=== PATIENT | female | born 1940 | race Caucasian/White ===

== ENCOUNTER → 2020-05-14 14:44 | Outpatient (BNVA) | payer MEDICARE, BC, SELFPAY | PROVIDERS: Visit Provider Obstetrics & Gynecology | DX: Z11.59 Encounter for screening for other viral diseases (principal) | CPT/HCPCS: 87635 ==

== ENCOUNTER → 2020-08-04 11:36 | Outpatient (BNVA) | payer MEDICARE, BC, SELFPAY | PROVIDERS: PCP Nurse Practitioner Family; Visit Provider Urology | DX: N39.41 Urge incontinence (principal); Z98.890 Other specified postprocedural states; N39.0 Urinary tract infection, site not specified; R33.9 Retention of urine, unspecified | CPT/HCPCS: 81003 ==

== ENCOUNTER → 2020-08-10 11:00 | Outpatient (BNVA) | payer MEDICARE, BC, SELFPAY | PROVIDERS: Visit Provider Internal Medicine | DX: L40.50 Arthropathic psoriasis, unspecified (principal); M79.7 Fibromyalgia; Z11.1 Encounter for screening for respiratory tuberculosis; Z11.59 Encounter for screening for other viral diseases; Z79.899 Other long term (current) drug therapy | CPT/HCPCS: 36415; 80053; 85025; 86140; 86480; 86704; 86803; 87340; 99203; 99204 ==

== ENCOUNTER → 2020-09-15 13:37 | Outpatient (BNVA) | payer MEDICARE, BC, SELFPAY | PROVIDERS: Visit Provider Internal Medicine | DX: L40.50 Arthropathic psoriasis, unspecified (principal); N18.9 Chronic kidney disease, unspecified; Z79.899 Other long term (current) drug therapy; Z79.52 Long term (current) use of systemic steroids | CPT/HCPCS: 99214 ==

== ENCOUNTER 2020-12-17 16:50 | Outpatient (CLI) | payer MEDICARE, BC, SELFPAY ==
[2020-12-17 17:32] LABS: Basophils # 0.1 10^3/uL (0.0-0.1); Basophils % 0.7 %; Eosinophils # 0.3 10^3/uL (0.0-0.8); Eosinophils % 3.4 %; Hematocrit 41.9 % (37.0-47.0); Hemoglobin 13.7 g/dL (11.5-15.3); Lymphocytes # 3.4 10^3/uL (0.8-4.8); Lymphocytes % 40.6 %; Mean Corpuscular HGB Conc 32.7 g/dL (30.0-36.0); Mean Corpuscular Hemoglobin 31.8 pg (28.0-34.0); Mean Corpuscular Volume 97.2 fL (81-99); Mean Platelet Volume 10.8 fL (7.4-10.4); Monocytes # 0.6 10^3/uL (0.2-0.9); Monocytes % 7.7 %; Neutrophils # 3.92 10^3/uL (1.8-7.7); Neutrophils % 47.4 %; Nucleated Red Blood Cells % 0 %; Platelet Count 228 10^3/cmm (130-400); Red Blood Count 4.31 10^6/uL (4.1-5.3); Red Cell Distribution Width 14.2 % (12.1-15.1); White Blood Count 8.3 10^3/uL (4.0-10.0)
[2020-12-17 18:10] LABS: Alanine Aminotransferase 12 U/L (0-33); Albumin Level 3.8 g/dL (3.5-5.2); Alkaline Phosphatase 54 IU/L (35-105); Anion Gap 12.1 (5-19); Aspartate Amino Transferase 17 U/L (0-32); Blood Urea Nitrogen 21 mg/dL (8-23); C Reactive Protein 1.4 mg/L (0.0-4.9); Calcium 9.7 mg/dL (8.5-10.5); Carbon Dioxide 27 mmol/L (22-29); Chloride 104 mmol/L (98-107); Globulin 3.5 g/dL (1.3-4.6); Glucose 78 mg/dL (65-115); Osmolality Calculated 290 mOsm/kg (285-295); Potassium 4.1 mmol/L (3.5-5.1); Sodium 139 mmol/L (136-145); Total Bilirubin 0.6 mg/dL (0.15-1.2); Total Protein 7.3 g/dL (6.6-8.7)
[2020-12-17 18:43] LABS: Erythrocyte Sedimentation Rate 23 mm/hr (0-15)
== END 2020-12-17 16:51 | disposition home or self-care (01) ==
LOC: LAB 17:00
PROVIDERS: PCP Nurse Practitioner Family; Visit Provider Internal Medicine
DX: L40.50 Arthropathic psoriasis, unspecified (principal); Z79.899 Other long term (current) drug therapy
CPT/HCPCS: 36415; 80053; 85025; 85651; 86140

== ENCOUNTER → 2020-12-20 14:05 | Outpatient (BNVA) | payer MEDICARE, BC, SELFPAY | PROVIDERS: PCP Nurse Practitioner Family; Visit Provider Internal Medicine | DX: L40.50 Arthropathic psoriasis, unspecified (principal); Z79.899 Other long term (current) drug therapy | CPT/HCPCS: 96372; 99213; 99214; J1030 ==

== ENCOUNTER → 2021-01-19 13:28 | Outpatient (BNVA) | payer MEDICARE, BC, SELFPAY | PROVIDERS: PCP Nurse Practitioner Family; Visit Provider Nurse Practitioner | DX: J02.9 Acute pharyngitis, unspecified (principal) | CPT/HCPCS: 87880 ==

== ENCOUNTER 2021-02-15 20:00 | Outpatient (CLI) | payer MEDICARE, BC, SELFPAY | END 2021-02-15 20:01 | disposition home or self-care (01) | LOC: SLEEP 02-16 10:29 | PROVIDERS: PCP Nurse Practitioner Family; Visit Provider Nurse Practitioner Family | DX: G47.30 Sleep apnea, unspecified (principal) | CPT/HCPCS: 95810 ==

== ENCOUNTER → 2021-04-25 13:30 | Outpatient (BNVA) | payer MEDICARE, BC, SELFPAY | PROVIDERS: PCP Nurse Practitioner Family; Visit Provider Internal Medicine | DX: L40.50 Arthropathic psoriasis, unspecified (principal); Z79.899 Other long term (current) drug therapy | CPT/HCPCS: 99214 ==

== ENCOUNTER 2021-04-25 16:29 | Outpatient (CLI) | payer MEDICARE, BC, SELFPAY ==
--- NOTE | 2021-04-25 16:32 | XR_ITS ---
WS: [id number] XR shoulder RT min 2V* [id number] REASON FOR EXAM: L40.50 - Arthropathic psoriasis, unspecified FINDINGS: Narrowing of the right acromioclavicular space with subchondral sclerosis in the acromion and large s uperior osteophyte of the clavicle. Significant narrowing of the glenohumeral joint with subchondral sclerosis in the glenoid and humeral head. No soft tissue abnormality. 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
== END 2021-04-25 16:30 | disposition home or self-care (01) ==
PROVIDERS: PCP Nurse Practitioner Family; Visit Provider Internal Medicine
DX: L40.50 Arthropathic psoriasis, unspecified (principal)
CPT/HCPCS: 73030

== ENCOUNTER → 2021-08-22 14:33 | Outpatient (BNVA) | payer MEDICARE, BC, SELFPAY | PROVIDERS: PCP Nurse Practitioner Family; Visit Provider Internal Medicine | DX: L40.50 Arthropathic psoriasis, unspecified (principal); N18.9 Chronic kidney disease, unspecified; Z79.899 Other long term (current) drug therapy | CPT/HCPCS: 99214 ==

== ENCOUNTER 2021-09-12 08:07 | Outpatient (CLI) | payer MEDICARE, BC, SELFPAY ==
--- NOTE | 2021-09-12 | US_ITS ---
WS: [id number] ULTRASOUND RENAL TECHNIQUE: Ultrasound examination of both kidneys. CLINICAL INFORMATION: 3b chronic kidney disease COMPARISON: None. FINDINGS: RIGHT: 1.8 x 1.9 x 1.3 cm hypoechoic lesion mid RIGHT kidney with a small amount of through-transmission lik mike complex renal cyst with some internal debris. Right kidney is normal in size and appearance. Echogenicity: Normal. Cortical thickness: 1.2 cm; Normal. Hydronephrosis: None. Perinephric fluid: None. Right kidney measures: 10.3 cm x 3.2 cm x 4.3 cm. LEFT: Simple LEFT renal cyst 1.0 x 0.9 x 0.8 cm Left kidney is normal in size and appearance. Echogenicity: Normal. Cortical thickness: 1.2 cm; Normal. Hydronephrosis: None. Perinephric fluid: None. Left kidney measures: 10.0 cm x 4.1 cm x 4.7 cm. Normal visualized aorta. Moderate diffuse bladder wall thickening with a few benign bladder wall calc ifications. Recommend correlation for chronic cystitis. US/US renal BI* [id number] IMPRESSION: 1. No hydronephrosis in either kidney. 2. Moderate diffuse bladder wall thickening with a few benign bladder wall deborah cifications. Recommend correlation for chronic cystitis. 3. Incidental simple LEFT renal cyst described above. 4. Hypoechoic RIGHT mid renal lesion with through transmission likely represen ts a slightly complex cyst with internal debris. Recommend interval follow-up i n 6 months with ultrasound.
== END 2021-09-12 08:08 | disposition home or self-care (01) ==
PROVIDERS: PCP Nurse Practitioner Family; Visit Provider Internal Medicine Nephrology
DX: N18.32 Chronic kidney disease, stage 3b (principal); N28.1 Cyst of kidney, acquired
CPT/HCPCS: 76770

== ENCOUNTER 2021-09-21 20:00 | Outpatient (CLI) | payer MEDICARE, BC, SELFPAY | END 2021-09-21 20:01 | disposition home or self-care (01) | LOC: SLEEP 09-22 05:25 | PROVIDERS: PCP Nurse Practitioner Family; Visit Provider Nurse Practitioner Family | DX: G47.33 Obstructive sleep apnea (adult) (pediatric) (principal) | CPT/HCPCS: 95811 ==

== ENCOUNTER → 2021-10-19 10:23 | Outpatient (BNVA) | payer MEDICARE, BC, SELFPAY | PROVIDERS: PCP Nurse Practitioner Family; Visit Provider Internal Medicine | DX: L40.50 Arthropathic psoriasis, unspecified (principal); M79.7 Fibromyalgia; N18.9 Chronic kidney disease, unspecified | CPT/HCPCS: 99214 ==

== ENCOUNTER 2021-10-20 15:30 | Outpatient (CLI) | payer MEDICARE, BC, SELFPAY ==
--- NOTE | 2021-10-20 15:47 | XR_ITS ---
WS: [id number] XR lumbar spine 2-3V* [id number] REASON FOR EXAM: L40.50 - Arthropathic psoriasis, unspecified FINDINGS: Mild rotatory scoliosis convex left on the AP view. Biconcave compression deformities of L1 and L2 un known chronicity but likely chronic. Moderate osteophyte formation at L1-L2 and L2-L3. There are multiple biconcave compression deformities in the lower thoracic spine as well. Posterior pedicle screws and rods interbody fusion devices L3-S1. The surgical appliances appear in proper position and alignment. 5 to 6 mm of anterolisthesis of L3 in relation to L2. Sacroiliac joints demonstrate no findings of spondyloarthropathy. XR/XR lumbar spine 2-3V* [id number] IMPRESSION: Postoperative lumbar spine, degenerative spondylosis as above.
[2021-10-20 16:07] LABS: Basophils % 0.4 %; Eosinophils % 0.4 %; Hematocrit 39.9 % (37.0-47.0); Hemoglobin 13.4 g/dL (11.5-15.3); Lymphocytes # 1.9 10^3/uL (0.8-4.8); Mean Corpuscular HGB Conc 33.6 g/dL (30.0-36.0); Mean Corpuscular Hemoglobin 31.5 pg (28.0-34.0); Mean Corpuscular Volume 93.9 fl (81-99); Mean Platelet Volume 11.3 fL (7.4-10.4); Monocytes # 0.3 10^3/uL (0.2-0.9); Monocytes % 3.6 %; Neutrophils # 5.26 10^3/uL (1.8-7.7); Neutrophils % 70.2 %; Nucleated Red Blood Cells % 0 %; Platelet Count 224 10^3/cmm (130-400); Red Blood Count 4.25 10^6/uL (4.1-5.3); Red Cell Distribution Width 14.3 % (12.1-15.1); White Blood Count 7.5 10^3/uL (4.0-10.0)
[2021-10-20 17:01] LABS: Alanine Aminotransferase 19 U/L (0-33); Albumin Level 3.9 g/dL (3.5-5.2); Alkaline Phosphatase 57 IU/L (35-105); Anion Gap 15.3 (5-19); Aspartate Amino Transferase 25 U/L (0-32); Blood Urea Nitrogen 22 mg/dL (8-23); Calcium 10.8 mg/dL (8.5-10.5); Carbon Dioxide 26 mmol/L (22-29); Chloride 100 mmol/L (98-107); Globulin 3.5 g/dL (1.3-4.6); Glucose 103 mg/dL (65-115); Osmolality Calculated 288 mOsm/kg (285-295); Potassium 4.3 mmol/L (3.5-5.1); Sodium 137 mmol/L (136-145); Total Bilirubin 0.9 mg/dL (0.15-1.2); Total Protein 7.4 g/dL (6.6-8.7)
== END 2021-10-20 15:31 | disposition home or self-care (01) ==
LOC: RAD 15:34 → LAB 15:38
PROVIDERS: PCP Nurse Practitioner Family; Visit Provider Internal Medicine
DX: L40.50 Arthropathic psoriasis, unspecified (principal); M79.7 Fibromyalgia; N18.9 Chronic kidney disease, unspecified; Z79.899 Other long term (current) drug therapy; M47.816 Spondylosis without myelopathy or radiculopathy, lumbar region
CPT/HCPCS: 72100; 80053; 85025

== ENCOUNTER → 2021-11-07 09:53 | Outpatient (BNVA) | payer MEDICARE, BC, SELFPAY | PROVIDERS: PCP Nurse Practitioner Family; Referring Provider Nurse Practitioner Family; Visit Provider Nurse Practitioner Family | DX: N39.0 Urinary tract infection, site not specified (principal); R33.9 Retention of urine, unspecified | CPT/HCPCS: 81003; 87077; 87086; 87184 ==

== ENCOUNTER 2022-01-03 07:19 | Outpatient (CLI) | payer MEDICARE, BC, SELFPAY ==
[2022-01-03 08:38] VITALS: BMI 29.5
--- NOTE | 2022-01-03 08:41 | ECG_ITS ---
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 Interpretive Statements NAME OF STUDY: LEXISCAN SESTAMIBI STRESS TEST INDICATION: Bradicardia, PROCEDURE: At the baseline, the EKG revealed normal sinus rhythm with normal ST Ts. Poor R wave progression. Possible old anteroseptal myocardial infarction. The baseline blood pressure was 141/71 mm Hg with a heart rate of 60 beats/min. Lexiscan was infused over a period of 20 seconds. A total of 0.4 milligrams of Lexiscan was infused. The stress phase was continued for a total of 5 minutes. Heart rate at the end of the stress phase was 73 with a blood pressure 145/62. The EKG at the peak infusion revealed no significant changes. Sestamibi was injected 20 seconds after the Lexiscan infusion. Blood pressure at the end of the recovery phase was 132/70 with a heart rate of 76 per minute. CONCLUSION: 1. No significant EKG changes with the LexiScan infusion 2. No LexiScan induced chest pain or cardiac arrhythmia 3. Normal blood pressure and heart rate response 4. Sestamibi/sestamibi perfusion scan pending; see separate report. Electronically Signed On 01-03-2022 22:45:25 CDT by Rere Rm M.D. [id number]
--- NOTE | 2022-01-03 08:41 | NMCV_ITS ---
NM charlie perf SPECT r/s* [id number] Lianna Mckeon Age: 81 Gender: F : 1940 Exam Date: 01/03/2022 08:59 Ordering Phys: Leonila James NP Technologist: PASCUAL Galdamez Exam Location: [facility] Indications: Bradycardia STRESS TEST Please see separate stress test report in [facility] for full findings IMAGE PROTOCOL Rest/Stress 1 Lexiscan Day Radiopharmaceutical Dose (mCi) Administration Site Administered by Rest: Tc-99m 10.8 IV Tonya Esparza IRRIGATOR Sestamibi Stress:Tc-99m 32.6 IV Tonya Esparza, IRRIGATOR Sestamibi Rest: 03-Jan-2022 60 Discovery 630 Stress: 03-Jan-2022 30 Discovery 630 0.4mg Lexiscan. Supine position only as patient was unable to lay prone. SPECT RESULTS Technical Quality: Excellent Raw Data Analysis: Normal Image Corrections: No attenuation or motion correction applied Summed Stress Score: 2 Summed Rest Score: 1 Summed Difference Score: 1 PERFUSION FINDINGS A small area of slightly decreased tracer uptake was noted in the mid inferolateral and apical lateral regions. Subtle area reversibility was noted in this region FUNCTIONAL RESULTS (calculated via Gated SPECT) Stress Image LV EF (%): 75 Stress EDV (mL):55 TID: 0.91 Stress ESV (mL):14 FUNCTIONAL FINDINGS: Segmental wall motion analysis revealing no gross wall motion abnormalities IMPRESSIONS 1. Myocardial perfusion imaging revealing small area of slightly decreased tracer uptake in the inferolateral and apical region with a subtle area reversibility suggesting myocardial scarring with ischemia in the distribution of the left circumflex artery. 2. Normal LV ejection fraction of 75%. 3. Segmental wall motion analysis revealing no gross wall motion abnormalities. 4. Normal LV volume No similar previous studies are available for comparison Dr Rere Rm MD [facility] (Electronically Signed) Final Date: 03 January 2022 22:12 S
[2022-01-03] MEDS: regadenoson 0.4 Mg/5 ml Syringe IVP (10:46)
[2022-01-03 11:00] VITALS: BP 132/70; PULSE 78
== END 2022-01-03 07:20 | disposition home or self-care (01) ==
LOC: CDL 07:23
PROVIDERS: PCP Nurse Practitioner Family; Visit Provider Nurse Practitioner Family
DX: R00.1 Bradycardia, unspecified (principal)
CPT/HCPCS: 78452; 93017; A9500; J2785

== ENCOUNTER 2022-02-16 14:54 | Outpatient (CLI) | payer MEDICARE, BC, SELFPAY ==
[2022-02-16 15:28] LABS: Basophils # 0.1 10^3/uL (0.0-0.1); Basophils % 1.3 %; Eosinophils # 0.6 10^3/uL (0.0-0.8); Eosinophils % 7.2 %; Hematocrit 42.7 % (37.0-47.0); Hemoglobin 13.7 g/dL (11.5-15.3); Lymphocytes # 3.2 10^3/uL (0.8-4.8); Mean Corpuscular HGB Conc 32.1 g/dL (30.0-36.0); Mean Corpuscular Hemoglobin 31.4 pg (28.0-34.0); Mean Corpuscular Volume 97.7 fl (81-99); Mean Platelet Volume 9.7 fL (7.4-10.4); Monocytes # 0.7 10^3/uL (0.2-0.9); Monocytes % 8.1 %; Neutrophils # 3.62 10^3/uL (1.8-7.7); Neutrophils % 43.9 %; Nucleated Red Blood Cells % 0 %; Platelet Count 316 10^3/cmm (130-400); Red Blood Count 4.37 10^6/uL (4.1-5.3); Red Cell Distribution Width 12.8 % (12.1-15.1); White Blood Count 8.2 10^3/uL (4.0-10.0)
[2022-02-16 15:30] LABS: Erythrocyte Sedimentation Rate 14 mm/hr (0-15)
[2022-02-16 16:19] LABS: Alanine Aminotransferase 11 U/L (0-33); Albumin Level 3.3 g/dL (3.5-5.2); Alkaline Phosphatase 69 IU/L (35-105); Anion Gap 12.5 (5-19); Aspartate Amino Transferase 18 U/L (0-32); Blood Urea Nitrogen 22 mg/dL (8-23); C Reactive Protein 4.4 mg/L (0.0-4.9); Calcium 10.4 mg/dL (8.5-10.5); Carbon Dioxide 30 mmol/L (22-29); Chloride 100 mmol/L (98-107); Globulin 3.6 g/dL (1.3-4.6); Glucose 88 mg/dL (65-115); Osmolality Calculated 289 mOsm/kg (285-295); Potassium 4.5 mmol/L (3.5-5.1); Sodium 138 mmol/L (136-145); Total Bilirubin 0.4 mg/dL (0.15-1.2); Total Protein 6.9 g/dL (6.6-8.7)
== END 2022-02-16 14:55 | disposition home or self-care (01) ==
LOC: LAB 14:58
PROVIDERS: PCP Nurse Practitioner Family; Visit Provider Internal Medicine
DX: L40.50 Arthropathic psoriasis, unspecified (principal); Z79.899 Other long term (current) drug therapy; N18.9 Chronic kidney disease, unspecified; M96.1 Postlaminectomy syndrome, not elsewhere classified
CPT/HCPCS: 80053; 85025; 85651; 86140; 99214

== ENCOUNTER → 2022-03-15 08:34 | Outpatient (BNVA) | payer MEDICARE, BC, SELFPAY | PROVIDERS: PCP Nurse Practitioner Family; Visit Provider Anesthesiology Pain Medicine | DX: M51.36 Other intervertebral disc degeneration, lumbar region (principal); M54.16 Radiculopathy, lumbar region; M43.26 Fusion of spine, lumbar region; M79.604 Pain in right leg; M79.605 Pain in left leg; M41.9 Scoliosis, unspecified; L40.50 Arthropathic psoriasis, unspecified | CPT/HCPCS: 99204; 99205 ==

== ENCOUNTER 2022-04-10 11:22 | Outpatient (CLI) | payer MEDICARE, BC, SELFPAY ==
--- NOTE | 2022-04-10 12:00 | CT_ITS ---
WS: [id number] CT LUMBAR SPINE TECHNIQUE: Noncontrast CT of the lumbar spine with coronal and sagittal reformatted images. CLINICAL INFORMATION: M54.16 - Radiculopathy, lumbar region COMPARISON: None. DLP: 1506.[address] scans at [facility] use at least one of these dose optimization techniques: automated e xposure control; mA and/or kV adjustment per patient size (includes targeted exams where dose is matc hed to clinical indication); or iterative reconstruction. FINDINGS: Lumbar scoliosis convex LEFT. Pedicle screw fixation L3-L5 with interbody fusion grafts L3-L4 and L4- L5. Interconnecting rods appear intact. No evidence of screw loosening. Osteopenia. Disc osteophyte complexes lower thoracic spine T11-T12 and T12-L1 with mild central canal stenosis. M oderate facet arthropathy lower thoracic spine. L1-L2: LEFT pericentral disc osteophyte complex impinges the traversing LEFT L2 nerve root with mild central canal stenosis. Mild LEFT foraminal narrowing. RIGHT foramen is patent. Moderate facet arthro tevin. L2-L3: Retrolisthesis L2 on L3 measuring 6 mm. Disc desiccation with endplate degenerative changes. M oderate central canal stenosis. Impingement traversing L3 nerve roots bilaterally. Advanced facet art hropathy with ligamentum flavum hypertrophy. Moderate bilateral bony foraminal narrowing. This is wor se in the RIGHT. L3-L4: Prior laminectomy defects. Pedicle screw fixation. Spinal canal is patent. Moderate RIGHT fora kendall narrowing. L4-L5: Grade 1 anterolisthesis L4 on L5. Interbody fusion. Narrowing of the subarticular recess. Prio r laminectomy defects. Spinal canal is patent. Advanced facet arthropathy. Mild RIGHT and no signific ant LEFT foraminal narrowing. L5-S1: Disc osteophyte complex with endplate ridging. Slight impingement traversing LEFT greater than RIGHT S1 nerve roots. Moderate to advanced facet arthropathy. Moderate LEFT bony foraminal narrowing . Mild RIGHT bony foraminal narrowing. Cholecystectomy clips. Adrenal glands are normal. Degenerative arthritis sacroiliac joints. CT/CT lumbar spine wo con* [id number] IMPRESSION: 1. Lumbar scoliosis convex LEFT. 2. Pedicle screw fixation L3-L5 with interbody fusion grafts. No evidence of h ardware loosening. Evidence of bony bridging beyond the confines of the grafts at L3-L4 and L4-L5. 3. Slight retrolisthesis L2 on L3 measuring 6 mm with moderate central canal s tenosis. Impingement traversing L3 nerve roots bilaterally. 4. Decompressive laminectomies L3-L4 L4-L5. 5. Disc osteophyte complexes T11-T12 and T12-L1 with mild central canal stenos is. 6. Disc osteophyte complex LEFT L1-L2 impinges the traversing LEFT L2 nerve ro ot. 7. Moderate to severe RIGHT L2-L3 bony foraminal narrowing. Moderate RIGHT L3- L4 and LEFT L5-S1 bony foraminal narrowing. 8. Mild RIGHT L4-L5 bony foraminal narrowing.
== END 2022-04-10 11:23 | disposition home or self-care (01) ==
PROVIDERS: PCP Nurse Practitioner Family; Visit Provider Anesthesiology Pain Medicine
DX: M54.16 Radiculopathy, lumbar region (principal); M41.86 Other forms of scoliosis, lumbar region; Z98.1 Arthrodesis status; M48.04 Spinal stenosis, thoracic region; M48.05 Spinal stenosis, thoracolumbar region
CPT/HCPCS: 72131

== ENCOUNTER 2022-04-10 11:22 | Outpatient (CLI) | payer MEDICARE, BC, SELFPAY ==
--- NOTE | 2022-04-10 11:38 | US_ITS ---
WS: [id number] RENAL ULTRASOUND HISTORY: STAGE 3B CHRONIC KIDNEY DZ COMPARISON: 09/12/2021 TECHNIQUE: 2-D and color Doppler imaging of the kidney submitted. Right kidney: 10.1 cm x 4.9 cm x 4.5 cm. Normal size kidney. Hypoechoic area in the mid RIGHT kidney measures 11 x 11 x 14 mm. No increase in size since the prior study. Cortical cyst is most likely. No hydronephrosis or solid mass. Left kidney: 9.8 cm x 5.7 cm x 3.6 cm. Normal size kidney. Small cortical cyst superior kidney measures 13 x 12 x 11 mm. No hydronephrosis o r solid mass. Aorta: Normal. Urinary Bladder: Normal distention. US/US renal BI* [id number] IMPRESSION: 1. No renal obstruction or solid mass. 2. Bilateral cortical cysts. Similar to the prior study from 09/12/2021.
== END 2022-04-10 11:23 | disposition home or self-care (01) ==
PROVIDERS: PCP Nurse Practitioner Family; Visit Provider Internal Medicine Nephrology
DX: N18.32 Chronic kidney disease, stage 3b (principal); N28.1 Cyst of kidney, acquired
CPT/HCPCS: 76770

== ENCOUNTER 2022-06-02 15:11 | Outpatient (CLI) | payer MEDICARE, SELFPAY ==
--- NOTE | 2022-06-02 15:37 | XRR_ITS ---
PROCEDURE INFORMATION: Exam: XR Thoracic Spine Exam date and time: 06/02/2022 3:45 PM Age: 81 years old Clinical indication: Injury or trauma; Fall; Blunt trauma (contusions or hematomas); Injury details: History--fell on May 28; Additional info: Pain in thoracic spine TECHNIQUE: Imaging protocol: Radiologic exam of the thoracic spine. Views: 3 views. COMPARISON: CT lumbar spine wo con* [id number] 04/10/2022 12:10 PM FINDINGS: Bones/joints: No acute fracture. Normal alignment. Soft tissues: Unremarkable. XR/XR thoracic spine 2V [id number] IMPRESSION: No acute findings.
== END 2022-06-02 15:12 | disposition home or self-care (01) ==
PROVIDERS: PCP Nurse Practitioner Family; Visit Provider Nurse Practitioner Family
DX: M54.6 Pain in thoracic spine (principal)
CPT/HCPCS: 72070

== ENCOUNTER → 2022-06-12 13:04 | Outpatient (BNVA) | payer MEDICARE, BC, SELFPAY | PROVIDERS: PCP Nurse Practitioner Family; Visit Provider Anesthesiology Pain Medicine | DX: M54.16 Radiculopathy, lumbar region (principal) | CPT/HCPCS: 64483; 64484; J1100; J3490 ==

== ENCOUNTER → 2022-08-08 15:48 | Outpatient (BNVA) | payer MEDICARE, BC, SELFPAY | PROVIDERS: PCP Nurse Practitioner Family; Visit Provider Internal Medicine | DX: L40.50 Arthropathic psoriasis, unspecified (principal) | CPT/HCPCS: 80053; 85025; 85651; 86140 ==

== ENCOUNTER 2022-10-05 13:56 | Outpatient (CLI) | payer MEDICARE, BC, SELFPAY ==
--- NOTE | 2022-10-05 | USCV_ITS ---
Lianna Mckeon Age: 82 Gender: F : 1940 Exam Date: 10/05/2022 15:21 Ordering Phys: Leonila James NP Technologist: Exam Location: [facility] [place] Indication: short of breath BP: 125 / 72 HR: 77 Rhythm: Sinus Technical Quality: Adequate MEASUREMENTS (Male / Female) Normal Values 2D ECHO LV Diastolic Diameter PLAX 3.9 cm 4.2 - 5.9 / 3.9 - 5.3 cm LV Systolic Diameter PLAX 2.4 cm IVS Diastolic Thickness 1.3 cm 0.6 - 1.0 / 0.6 - 0.9 cm IVS Systolic Thickness 1.6 cm LVPW Diastolic Thickness 1.3 cm 0.6 - 1.0 / 0.6 - 0.9 cm LVPW Systolic Thickness 1.4 cm LVOT Diameter 2.0 cm LV Ejection Fraction 2D Teich 69.0 % LV Ejection Fraction MOD 2C 46.3 % LV Ejection Fraction 2C AL 45.5 % LA Diameter 4.3 cm IVC Diameter 1.1 cm M-MODE Aortic Annulus Diameter 2.8 cm LA Ao Ratio MM 1.6 MV E Point Septal Separation 0.8 cm DOPPLER AV Peak Velocity 159.0 cm/s LVOT Peak Velocity 123.0 cm/s AV Area Cont Eq vti 2.9 cm squared AV Area Cont Eq pk 2.5 cm squared MV Area PHT 5.0 cm squared Mitral E to A Ratio 0.7 MV E' Velocity 61.0 cm/s Mitral E to MV E' Ratio 12.5 Mitral E to LV E' Lateral Ratio 14.8 Mitral E to LV E' Septal Ratio 10.8 TR Peak Velocity 237.0 cm/s TR Peak Gradient 22.5 mmHg TV Peak E Velocity 79.0 cm/s Right Atrial Pressure 3.0 mmHg Pulmonary Artery Systolic Pressu 25.5 mmHg PV Peak Velocity 64.0 cm/s RV Acceleration Time 0.2 s FINDINGS Left Ventricle Normal left ventricular size and systolic function, EF 69%. Mild left ventricular hypertrophy. No regional wall motion abnormalities. Grade I/IV diastolic dysfunction (abnormal relaxation filling pattern), normal to mildly elevated filling pressures. Right Ventricle The right ventricle is normal in size and function. Right Atrium The right atrium is normal in size. Left Atrium Mildly increased left atrial size. Mitral Valve Moderate mitral annular calcification. Mild-moderate mitral valve regurgitation. Aortic Valve Trace aortic valve regurgitation. Thickened aortic valve. Tricuspid Valve Trace tricuspid valve regurgitation. Pulmonic Valve No gross abnormality noted Pericardium No pericardial effusion. Aorta Normal ascending aorta dimension. IVC Normal inferior vena cava. CONCLUSIONS Normal left ventricular size and systolic function, EF 69%. Mild left ventricular hypertrophy. No regional wall motion abnormalities. Grade I/IV diastolic dysfunction (abnormal relaxation filling pattern), normal to mildly elevated filling pressures. Moderate mitral annular calcification. Mild-moderate mitral valve regurgitation. Trace aortic valve regurgitation. Thickened aortic valve. Trace tricuspid valve regurgitation. Estimated pulmonary artery peak systolic pressure 26 mmHg There is no pericardial effusion. There are no intracardiac masses. No similar previous studies are available for comparison Dr Rere Rm MD [facility] (Electronically Signed) Final Date: 06 October 2022 23:26 S
== END 2022-10-05 13:57 | disposition home or self-care (01) ==
LOC: RAD 14:00
PROVIDERS: PCP Nurse Practitioner Family; Visit Provider Nurse Practitioner Family
DX: I08.3 Combined rheumatic disorders of mitral, aortic and tricuspid valves (principal); I50.9 Heart failure, unspecified
CPT/HCPCS: 93306

== ENCOUNTER → 2022-10-10 15:20 | Outpatient (BNVA) | payer MEDICARE, BC, SELFPAY | PROVIDERS: PCP Nurse Practitioner Family; Visit Provider Internal Medicine | DX: L40.50 Arthropathic psoriasis, unspecified (principal); Z79.899 Other long term (current) drug therapy; N18.9 Chronic kidney disease, unspecified; M54.50 Low back pain, unspecified | CPT/HCPCS: 99213 ==

== ENCOUNTER → 2022-12-21 15:08 | Outpatient (BNVA) | payer MEDICARE, BC, SELFPAY | PROVIDERS: PCP Nurse Practitioner Family; Visit Provider Internal Medicine | DX: L40.50 Arthropathic psoriasis, unspecified (principal); M54.50 Low back pain, unspecified; Z79.899 Other long term (current) drug therapy; N18.9 Chronic kidney disease, unspecified | CPT/HCPCS: 36415; 72040; 72100; 73502; 80053; 85025; 85651; 86140; 99213 ==

== ENCOUNTER → 2023-01-03 15:06 | Outpatient (BNVA) | payer MEDICARE, BC, SELFPAY | PROVIDERS: PCP Nurse Practitioner Family; Visit Provider Nurse Practitioner Family | DX: L40.0 Psoriasis vulgaris (principal); L40.59 Other psoriatic arthropathy; L57.8 Other skin changes due to chronic exposure to nonionizing radiation; L85.3 Xerosis cutis; Z71.89 Other specified counseling; I87.2 Venous insufficiency (chronic) (peripheral); D22.5 Melanocytic nevi of trunk; L82.1 Other seborrheic keratosis; L82.0 Inflamed seborrheic keratosis; L57.0 Actinic keratosis | CPT/HCPCS: 17000; 17003; 17110; 99213 ==

== ENCOUNTER → 2023-03-29 11:03 | Outpatient (BNVA) | payer MEDICARE, BC, SELFPAY | PROVIDERS: PCP Nurse Practitioner Family; Visit Provider Internal Medicine | DX: L40.0 Psoriasis vulgaris (principal); L40.50 Arthropathic psoriasis, unspecified; Z79.899 Other long term (current) drug therapy; N18.9 Chronic kidney disease, unspecified; M54.50 Low back pain, unspecified; L29.9 Pruritus, unspecified | CPT/HCPCS: 36415; 80053; 85025; 99214 ==

== ENCOUNTER → 2023-04-09 13:54 | Outpatient (BNVA) | payer MEDICARE, BC, SELFPAY | PROVIDERS: PCP Nurse Practitioner Family; Visit Provider Nurse Practitioner Family | DX: L40.0 Psoriasis vulgaris (principal); L40.59 Other psoriatic arthropathy; Z79.899 Other long term (current) drug therapy; L57.8 Other skin changes due to chronic exposure to nonionizing radiation; L85.3 Xerosis cutis; L81.4 Other melanin hyperpigmentation; D22.5 Melanocytic nevi of trunk; L82.1 Other seborrheic keratosis; I87.2 Venous insufficiency (chronic) (peripheral); R60.0 Localized edema; D69.2 Other nonthrombocytopenic purpura; L72.0 Epidermal cyst; L57.0 Actinic keratosis | CPT/HCPCS: 17000; 17110; 99214 ==

== ENCOUNTER 2023-09-05 09:53 | Observation (INO) | payer MEDICARE, SELFPAY ==
[2023-09-05] VITALS (18 sets, daily range): BP systolic 110–164; BP diastolic 53–91; PULSE 64–108; RESP 13–20; TEMP 36.4–36.9; O2SAT 95–99; BMI 31.6; BMI 29.4
--- NOTE | 2023-09-05 10:01 | CT_ITS ---
WS: [id number] CT HEAD TECHNIQUE: Noncontrast CT of the head obtained from the skullbase to the vertex. CLINICAL INFORMATION: trauma COMPARISON: None. DLP: 1100.[address] scans at [facility] use at least one of these dose optimization techniques: automated e xposure control; mA and/or kV adjustment per patient size (includes targeted exams where dose is matc hed to clinical indication); or iterative reconstruction. FINDINGS: No evidence of intracranial hemorrhage or mass effect. Ventricular system and basal cisterns are tapia nt. Moderate small vessel changes with moderate parenchymal volume loss. No extra-axial fluid collect ions. Intracranial vascular calcification. 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 Ex vacuo dilatation RIGHT frontal horn. Chronic lacunar infarct RIGHT cerebellum. Paranasal sinuses and mastoid air cells are well aerated. .Normal visualized soft tissues. IMPRESSION: 1. No evidence of intracranial hemorrhage or mass effect. 2. Moderate small vessel changes with moderate parenchymal volume loss. 3. Intracranial vascular calcification. 4. No acute intracranial findings.
--- NOTE | 2023-09-05 10:02 | ECG_ITS ---
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 Measurements Intervals [place] Rate: 90 P: 56 ND: 168 QRS: -27 QRSD: 101 T: 34 QT: 367 QTc: 450 Interpretive Statements SINUS RHYTHM LOW QRS VOLTAGE IN PRECORDIAL LEADS [QRS DEFLECTION < 1.0 mV IN CHEST LEADS] ANTEROSEPTAL MYOCARDIAL INFARCTION , PROBABLY OLD [40+ ms Q WAVE IN V1-V4] No previous ECG available for comparison Electronically Signed On 09-06-2023 10:47:35 SILK TRIMMER by Rere Rm M.D. [email or web address]
[2023-09-05 10:25] LABS: Basophils # 0.1 10^3/uL (0.0-0.1); Eosinophils # 0.2 10^3/uL (0.0-0.8); Eosinophils % 2.4 %; Hematocrit 34.9 % (36-47); Lymphocytes # 3.1 10^3/uL (0.8-4.8); Lymphocytes % 37.4 %; Mean Corpuscular HGB Conc 35.5 g/dL (30-55); Mean Corpuscular Hemoglobin 31.6 pg (27-33); Mean Platelet Volume 11.7 fL (7.4-10.4); Monocytes # 0.9 10^3/uL (0.2-0.9); Neutrophils # 4.02 10^3/uL (1.8-7.7); Neutrophils % 48.1 %; Nucleated Red Blood Cells % 0 %; Platelet Count 209 10^3/cmm (157-399); Red Blood Count 3.92 10^6/uL (3.85-5.65); Red Cell Distribution Width 15.4 % (12.1-15.1); White Blood Count 8.35 10^3/uL (3.29-11.43)
--- NOTE | 2023-09-05 10:36 | ED_ITS ---
HPI - Fall 2 General: Chief Complaint: Fall Stated Complaint: fall Time Seen by Provider: 09/05/23 10:01 Source: patient Mode of arrival: ambulatory History of Present Illness: 83-year-old female presents emergency ro om she fell last night was unable to get up she has a history of fibromyalgia. She has a lot of swelling in her legs is chronic kidney disease as well. She was on the floor until she was found this morning around 8 AM she was on the floor for around 6 hours. She complains of a headache she does have dried blood around the right nare and on the left episcopalian. She denies loss consciousness no vomiting. 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 Recurrent UTI Urge incontinence STATUS POST VESICOVAGINAL FISTULA REPAIR Hypertension Surgical History Hx of hysterectomy Hx of cholecystectomy Hx of appendectomy Hx of oophorectomy S/P tonsillectomy H/O lumbosacral spine surgery H/O total knee replacement H/O bladder repair surgery Sling Family History Family/Other Cancer lung cancer Mother , at 100 Congestive heart failure (CHF) Father , at age 64 Stroke Social History Smoking and tobacco/nicotine status: never used tobacco/nicotine Second hand smoke exposure: No Alcohol intake: current Alcohol intake frequency: holidays/special occasions only Alcohol type: hard liquor Substance/Drug Use: never Marital status: Current occupational status: retired Physical Exam 2 Const: COMMON NORMALS: no acute distress GENERAL APPEARANCE: cooperative and comfortable ORIENTATION/CONSCIOUSNESS: Yes awake, Yes oriented to person, Yes oriented to place and Yes oriented to time HENMT: COMMON NORMALS: normocephalic, atraumatic and hearing grossly normal bilaterally HEAD & SCALP: normocephalic and atraumatic Resp: COMMON NORMALS: normal respiratory effort, No retractions, No use of accessory muscles and clear to auscultation bilaterally AUSCULTATION: clear to auscultation bilaterally Cardio: COMMON NORMALS: regular rate, regular rhythm and No murmurs present (Cardio) RATE: regular rate RHYTHM: regular rhythm GI: COMMON NORMALS: Soft to palpation and No hepatosplenomegaly present A USCULTATION: Yes normoactive bowel sounds PALPATION: Yes Soft to palpation, No Tenderness to palpation present (GI), No Guarding due to palpation present (GI) and Yes No hepatosplenomegaly present Extremity: COMMON NORMALS: normal to inspection, capillary refill normal, no clubbing, cyanosis or edema, no calf tenderness and no pedal edema Neuro: SENSORIUM/ORIENTATION: Yes oriented to person, Yes oriented to place and Yes oriented to time Skin: COMMON NORMALS: no rashes or lesions noted GENERAL SKIN EXAM: no rashes or lesions noted Course 2 Vital Signs: Vital signs: Vital Signs Temperature 97.6 F 09/05/23 09:54 Pulse Rate 87 09/05/23 13:45 Respiratory Rate 14 09/05/23 13:45 Blood Pressure 137/68 09/05/23 13:45 Pulse Oximetry 96 09/05/23 13:45 Oxygen Delivery Me thod Room Air 09/05/23 12:56 MDM - Fall Medical Decision Making Fall with hypokalemia mild rhabdomyolysis she also has a small bump in her troponin +7. No known history of heart disease she has been falling more frequently lately. Will admit to complete cardiac workup monitor for worsening rhabdomyolysis and improve her potassium. Discussed with hospitalist orders written Medical Records I reviewed the patient's medical records. Lab Data I reviewed the patient's lab results. 09/05/23 10:16 09/05/23 10:16 Laboratory Results WBC 8.35 10^3/uL (3.29-11.43) 09/05/23 10:16 RBC 3.92 10^6/uL (3.85-5.65) 09/05/23 10:16 Hgb 12.40 g/dL (11.27-16.99) 09/05/23 10:16 Hct 34.9 % (36-47) L 09/05/23 10:16 MCV 89.0 fl (85-98) 09/05/23 10:16 MCH 31.6 pg (27-33) 09/05/23 10:16 MCHC 35.5 g/dL (30-55) 09/05/23 10:16 RDW 15.4 % (12.1-15.1) H 09/05/23 10:16 Plt Count 209 10^3/cmm (157-399) 09/05/23 10:16 MPV 11.7 fL (7.4-10.4) H 09/05/23 10:16 Neut % (Auto) 48.1 % 09/05/23 10:16 Lymph % (Auto) 37.4 % 09/05/23 10:16 Duchesne % (Auto) 11.0 % 09/05/23 10:16 Eos % (Auto) 2.4 % 09/05/23 10:16 Baso % (Auto) 1.0 % 09/05/23 10:16 Neut # (Auto) 4.02 10^3/uL (1.8-7.7) 09/05/23 10:16 Lymph # (Auto) 3.1 10^3/uL (0.8-4.8) 09/05/23 10:16 Duchesne # (Auto) 0.9 10^3/uL (0.2-0.9) 09/05/23 10:16 Eos # (Auto) 0.2 10^3/uL (0.0-0.8) 09/05/23 10:16 Baso # (Auto) 0.1 10^3/uL (0.0-0.1) 09/05/23 10:16 Nucleated RBC % (auto) 0 % 09/05/23 10:16 Nucleated RBCs # 0.0 /100WBC 09/05/23 10:16 Sodium 134 mmol/L (136-145) L 09/05/23 10:16 Potassium 2.8 mmol/L (3.5-5.1) L* 09/05/23 10:16 Chloride 96 mmol/L (98-107) L 09/05/23 10:16 Carbon Dioxide 29 mmol/L (22-29) 09/05/23 10:16 Anion Gap 11.8 (5-19) 09/05/23 10:16 BUN 10 mg/dL (8-23) 09/05/23 10:16 Creatinine 0.9 mg/dL (0.5-0.9) 09/05/23 10:16 GFR Calculation Not Reportable 09/05/23 10:16 Glucose 95 mg/dL (65-115) 09/05/23 10:16 Calculated Osmolality 277 mOsm/kg (285-295) L 09/05/23 10:16 Lactic Acid 1.2 mmol/L (0.5-2.2) 09/05/23 10:16 Calcium 8.5 mg/dL (8.5-10.5) 09/05/23 10:16 Total Bilirubin 3.4 mg/dL (0.15-1.2) H 09/05/23 10:16 AST 145 U/L (0-32) H 09/05/23 10:16 ALT 51 U/L (0-33) H 09/05/23 10:16 Alkaline Phosphatase 305 U/L (35-105) H 09/05/23 10:16 Creatine Kinase 335 U/L (26-192) H* 09/05/23 10:16 Troponin T Baseline 13 ng/L (0-10) H 09/05/23 10:16 Troponin T 120 Minute 20.16 ng/L (0-10) H 09/05/23 12:07 Delta Troponin T 7.16 ABS# (0-10) 09/05/23 12:07 NT-Pro-B Natriuret Pep 338 pg/mL (0-450) 09/05/23 10:16 Total Protein 6.7 g/dL (6.6-8.7) 09/05/23 10:16 Albumin 2.5 g/dL (3.5-5.2) L 09/05/23 10:16 Globulin 4.2 g/dL (1.3-4.6) 09/05/23 10:16 Procalcitonin 0.57 ng/mL (0-0.5) H 09/05/23 10:16 Adenovirus (PCR) Not detected (NOT DETECT) 09/05/23 12:07 C. pneumoniae DNA (PCR) Not detected (NOT DETECT) 09/05/23 12:07 Coronavirus 229E (PCR) Not detected (NOT DETECT) 09/05/23 12:07 Hepatitis A IgM Ab Non-reactive (Nonreactive) 09/05/23 10:16 Hep Bs Antigen Non-reactive (Nonreactive) 09/05/23 10:16 Hep B Core IgM Ab Non-reactive (Nonreactive) 09/05/23 10:16 Hepatitis C Antibody Non-reactive (Nonreactive) 09/05/23 10:16 Human Metapneumovir PCR Not detected (NOT DETECT) 09/05/23 12:07 Influenza A (H1) PCR Not detected (NOT DETECT) 09/05/23 12:07 Influ A (H1/09) PCR Not detected (NOT DETECT) 09/05/23 12:07 Influenza A (H3) PCR Not detected (NOT DETECT) 09/05/23 12:07 Influenza Type A (PCR) Not detected (NOT DETECT) 09/05/23 12:07 Influenza Type B (PCR) Not detected (NOT DETECT) 09/05/23 12:07 M. pneumoniae (PCR) Not detected (NOT DETECT) 09/05/23 12:07 Parainfluenza 1 (PCR) Not detected (NOT DETECT) 09/05/23 12:07 Parainfluenza 2 (PCR) Not detected (NOT DETECT) 09/05/23 12:07 Parainfluenza 3 (PCR) Not detected (NOT DETECT) 09/05/23 12:07 Parainfluenza 4 (PCR) Not detected (NOT DETECT) 09/05/23 12:07 RSV Type A (PCR) Not detected (NOT DETECT) 09/05/23 12:07 RSV Type B (PCR) Not detected (NOT DETECT) 09/05/23 12:07 Entero/Rhino (PCR) Not detected (NOT DETECT) 09/05/23 12:07 SARS-CoV-2 (PCR) Not detected (NOT DETECT) 09/05/23 12:07 All radiology interpretation(s) finalized by discharge Discharge Plan Discharge Patient Disposition: Placed in Observation Admit Provider: Mir Otero Clinical Impression: Rhabdomyolysis, Acute hypokalemia, Elevated troponin I level, Generalized weakness, Frequent falls Condition: Stable Coding Level of Care Code 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
[2023-09-05 10:43] LABS: Troponin(5th) Baseline 13 ng/L (0-10)
[2023-09-05 10:44] LABS: Alanine Aminotransferase 51 U/L (0-33); Albumin Level 2.5 g/dL (3.5-5.2); Alkaline Phosphatase 305 U/L (35-105); Anion Gap 11.8 (5-19); Aspartate Amino Transferase 145 U/L (0-32); Blood Urea Nitrogen 10 mg/dL (8-23); Calcium 8.5 mg/dL (8.5-10.5); Carbon Dioxide 29 mmol/L (22-29); Chloride 96 mmol/L (98-107); Creatinine Clr Calc Pharmacy 48.6316; Globulin 4.2 g/dL (1.3-4.6); Glucose 95 mg/dL (65-115); Lactic Sepsis W/Reflex 1.2 mmol/L (0.5-2.2); Osmolality Calculated 277 mOsm/kg (285-295); Sodium 134 mmol/L (136-145); Total Bilirubin 3.4 mg/dL (0.15-1.2); Total Protein 6.7 g/dL (6.6-8.7)
--- NOTE | 2023-09-05 10:44 | USCV_ITS ---
Lianna Mckeon Age: 83 Gender: F : 1940 Exam Date: 09/05/2023 10:56 Ordering Phys: Farrukh Isabel DO Technologist: MARISABEL Exam Location: [facility] [place]_ Indication: BLE SWELLING HISTORY: Lower extremity swelling. PROCEDURES: Venous duplex imaging was performed in bilateral lower extremities. The following venous structures were evaluated: common femoral vein, profunda vein, proximal portion of the greater saphenous vein, superficial femoral vein, and the popliteal vein. In addition, the posterior tibial and peroneal trunk were evaluated. Serial compression, augmentation maneuvers, and spectral Doppler flow evaluation were performed. FINDINGS: No evidence of DVT seen in any vessel visualized at this time. Examination was technically limited due to body habitus. Edema seen in Bilateral Lower Legs Pre Angel given to Dr. Isabel CONCLUSIONS No evidence of right lower extremity DVT. No evidence of left lower extremity DVT. Errol Vargas MD (Electronically Signed) Final Date: 05 September 2023 13:01 S
--- NOTE | 2023-09-05 10:44 | CT_ITS ---
WS: [id number] CT FACIAL BONES TECHNIQUE: Noncontrast facial bones with coronal and sagittal reformatted images. CLINICAL INFORMATION: trauma COMPARISON: None. DLP: 15.[address] scans at [facility] use at least one of these dose optimization techniques: automated e xposure control; mA and/or kV adjustment per patient size (includes targeted exams where dose is matc hed to clinical indication); or iterative reconstruction. FINDINGS: Soft tissue edema overlying the nasal bones. Small minimally displaced bilateral nasal bone fractures with distal nasal tuft fracture. Paranasal sinuses are well aerated. Normal pterygoid plates. Normal zygoma. Normal sphenoid wings. No rmal lamina papyracea. Lateral orbits are normal. Normal posterior nasopharynx and parapharyngeal fat . Intracranial vascular calcification. Orbits are normal in appearance. No evidence of mandibular fra cture or dislocation. IMPRESSION: Soft tissue edema overlying the nasal bones. Small minimally displaced bilateral nasal bone fractur es with distal nasal tuft fracture.
[2023-09-05 10:50] LABS: Creatine Phosphokinase 335 U/L (26-192); Potassium 2.8 mmol/L (3.5-5.1)
--- NOTE | 2023-09-05 10:51 | CT_ITS ---
WS: [id number] CT CERVICAL TRAUMA TECHNIQUE: Noncontrast CT of the cervical spine with coronal and sagittal reformatted images. CLINICAL INFORMATION: fall COMPARISON: None. DLP: 15.[address] scans at [facility] use at least one of these dose optimization techniques: automated e xposure control; mA and/or kV adjustment per patient size (includes targeted exams where dose is matc hed to clinical indication); or iterative reconstruction. FINDINGS: Straightening of the normal cervical lordosis. Mild cervical curve. Straightening of the normal cervi deborah lordosis. Mild spondylitic changes. Slight anterolisthesis C3 on C4 and C4 on C5. Disc narrowing worse at C5-C6 and C6-C7. Vascular calcification. Lung apices are well aerated. Normal craniocervical junction. Normal C1-C2 articulation. Dens is normal in appearance. Normal occipital condyles. Normal C1 ring. No evidence of acute fracture or dislocation. Normal prevertebral soft tissues. Mastoids air cells are well aerated. IMPRESSION: No evidence of acute fracture or dislocation.
--- NOTE | 2023-09-05 11:10 | US_ITS ---
WS: [id number] ULTRASOUND ABDOMEN LIMITED CLINICAL INFORMATION: Elevated T. bili and liver enzymes COMPARISON: None. FINDINGS: Liver Size: Normal. Craniocaudal length: 12.3 cm. Echogenicity: Normal. Surface nodularity: None. Mass (size and location): None. Normal hepatopetal flow. Bile ducts Intrahepatic ducts: Normal. Common bile duct diameter: 0.4 cm. Gallbladder Cholecystectomy. Pancreas Normal as visualized. Right kidney: Normal. Hydronephrosis: None. Size: 9.5 cm x 5.0 cm x 4.6 cm. Abdominal aorta and IVC Visualized portions are normal. Ascites: None. IMPRESSION: Technically difficult study due to bowel gas. 1. Prior cholecystectomy 2. No other acute findings.
[2023-09-05] MEDS: potassium chloride premix 100 ML 25 MEQ IV (11:52)
[2023-09-05] MEDS: sodium chloride 0.9% 1,000 ML 999 ML IV (11:52)
[2023-09-05 11:54] LABS: NT Pro B Type Natriuretic Pept 338 pg/mL (0-450); Procalcitonin 0.57 ng/mL (0-0.5)
--- NOTE | 2023-09-05 12:02 | ECG_ITS ---
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 Measurements Intervals [place] Rate: 85 P: 74 MN: 180 QRS: -17 QRSD: 82 T: 56 QT: 403 QTc: 482 Interpretive Statements SINUS RHYTHM LOW QRS VOLTAGE IN PRECORDIAL LEADS [QRS DEFLECTION < 1.0 mV IN CHEST LEADS] ANTEROSEPTAL MYOCARDIAL INFARCTION , OF INDETERMINATE AGE [40+ ms Q WAVE IN V1-V4] Compared to ECG 09/05/2023 10:09:53 No significant changes Electronically Signed On 09-06-2023 20:09:36 FOREST FIRE FIGHTERS DISPATCHER by Rere Rm M.D. [id number]
--- NOTE | 2023-09-05 12:03 | XR_ITS ---
WS: [id number] EXAM: Single view pelvis. INDICATION: Pain after injury. Exam date: 09/05/2023. COMPARISON: None. FINDINGS: There is no displaced fracture identified There is no destruction. Hypertrophic changes at the greater trochanters are noted Lower lumbar surgical changes are noted. IMPRESSION: No displaced pelvic fracture is identified.
[2023-09-05 12:04] LABS: Hepatitis A Antibody IgM Non-Reactive (Nonreactive); Hepatitis B Core IgM Non-Reactive (Nonreactive); Hepatitis B Surface Antigen Non-Reactive (Nonreactive); Hepatitis C Virus Antibody Non-Reactive (Nonreactive)
--- NOTE | 2023-09-05 12:10 | PC.NURSE ---
PT PRESENTS WITH COMPLAINT OF FALL. PT STATES SHE FELL OUT OF HER CHAIR FACE FIRST AND WAS UNABLE TO GET HERSELF OFF THE FLOOR. PT STATES SHE WAS ON THE FLOOR ALL NIGHT UNTIL HER SON FOUND HER THIS MORNING AROUND 8 AM. PT STATES DENIES LOC OR BLOOD THINNER USE. PT STATES SHE HAS A HEADACHE AND HER FACE IS SORE. PT HAS DRIED BLOOD ON HER NOSE FROM THE FALL. PT STATES SHE HAS A HX OF FIBROMYALGIA. PT HAS NOTABLE YELLOWING TO BOTH EYES. PT IS ALERT AND ORIENTED WITH EVEN UNLABORED RESPIRATIONS WITH PATENT AIRWAY.
[2023-09-05 12:31] LABS: Troponin 5 2HR 20.16 ng/L (0-10); Troponin 5 2HR Delta 7.16 ABS# (0-10)
--- NOTE | 2023-09-05 12:38 | XR_ITS ---
WS: [id number] EXAM: Chest 1 view. INDICATION: Trauma, pain. Exam date 09/05/2023. COMPARISON: None. FINDINGS: The heart is mildly prominent in size. The mediastinum is not widened on this rotated film. The lungs appear expanded. There is no pulmonary edema. The right lung appears free of infiltrate. The left costophrenic angle a ppears opacified. This may be technical Severe chronic changes of the shoulders are identified. IMPRESSION: The left base and costophrenic angle are obscured. This may be technical however an area of effusion or consolidation may be present. If patient can tolerate a PA and lateral film would be of benefit There is no pulmonary edema.
--- NOTE | 2023-09-05 12:42 | PC.PHAR ---
Addendum entered by Sulema Bernstein 09/05/23 13:40: [facility] SENT RX MED LIST FOR THE LAST YEAR. SEVERAL MEDS ON HOLD AND SOME OTC ITEMS. MED REC COMPLETED Original Note: PT LEFT MED LIST AT HOME. [facility] IS FAXING CURRENT MED LIST. 09/05/23 12:40PM
[2023-09-05 13:54] LABS: Adenovirus Not Detected (NOT DETECT); Chlamydia Pneumoniae Not Detected (NOT DETECT); Coronavirus 229E,HKU1,NL63,OC4 Not Detected (NOT DETECT); Human Metapneumovirus Not Detected (NOT DETECT); Human Rhinovirus/Enterovirus Not Detected (NOT DETECT); Influenza A Not Detected (NOT DETECT); Influenza A H1 Not Detected (NOT DETECT); Influenza A H1-2009 Not Detected (NOT DETECT); Influenza A H3 Not Detected (NOT DETECT); Influenza B Not Detected (NOT DETECT); Mycoplasma Pneumoniae Not Detected (NOT DETECT); Parainfluenza Virus Type 1 Not Detected (NOT DETECT); Parainfluenza Virus Type 2 Not Detected (NOT DETECT); Parainfluenza Virus Type 3 Not Detected (NOT DETECT); Parainfluenza Virus Type 4 Not Detected (NOT DETECT); Respiratory Syncytial Virus A Not Detected (NOT DETECT); Respiratory Syncytial Virus B Not Detected (NOT DETECT); SARS-COV-2 Not Detected (NOT DETECT)
--- NOTE | 2023-09-05 16:02 | ECG_ITS ---
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 Measurements Intervals [place] Rate: 78 P: 74 CA: 160 QRS: -19 QRSD: 81 T: 31 QT: 410 QTc: 468 Interpretive Statements SINUS RHYTHM WITH SINUS ARRHYTHMIA LOW QRS VOLTAGE IN PRECORDIAL LEADS [QRS DEFLECTION < 1.0 mV IN CHEST LEADS] ANTEROSEPTAL MYOCARDIAL INFARCTION , OF INDETERMINATE AGE [40+ ms Q WAVE IN V1-V4] Compared to ECG 09/05/2023 12:01:06 No significant changes Electronically Signed On 09-06-2023 20:12:49 BLENDER/BRAZE APPLICATOR by Rere Rm M.D. [id number]
--- NOTE | 2023-09-05 16:34 | P.HP_ITS ---
Providers/Chief Complaint 2 Admitting Physician: Mir Otero MD Primary Care Provider: Leonila James NP Chief Complaint: fall History of Present Illness Lianna Mckeon is a 83 year old female with past medical history of lumbar fracture post surgery, fibromyalgia, hypokalemia, hypertension who presented to the ER today after a fall. As per the patient she had initial fall on when she was trying to take trash out and she had a mechanical fall after which her back pain got aggravated and she had difficulty and pain on moving her right leg since then she has been sitting and sleeping in the recliner. Patient had a repeat fall last night when her legs got tangled. Falls are not associated with chest pain, nausea vomiting, or, dizziness or difficulty in breathing. After fall she was not able to move and remained on the floor for around 6 hours till her son came to visit with her earlier in the morning. After that she was brought to the ER. In the ER she was found to have rhabdomyolysis with CPK up to 300 and potassium of 2.8. As per patient she has been worked up as an outpatient by primary care provider for abnormal liver numbers with possibility of liver ultrasound later this week. She states her lower limbs have been getting swollen, she has been gaining weight for last 1 month along with increased fullness in her belly for which she has been taking double the dose of her Lasix and double the dose of her potassium. Patient states she has been fair amount of stress lately because her was recently moved to a snf under hospice for [facility]'s since then she has been living by herself and her family has been trying to get her to assisted living in [place] where they are planning to get her before the end of this month. Review of Systems 2 General: Reports: 10 or more systems reviewed and unremarkable except in HPI and below Const: Denies: fever(s), chills, body aches, change in appetite, change in weight, malaise, night sweats, diaphoresis, change in sleep pattern, daytime sleepiness or snoring Eyes: Denies: change in vision, blurry vision, photophobia, eye discomfort or eye discharge ENMT: Denies: throat pain, enlarged tonsils, hoarseness, mouth pain, oral sores, dry mouth, tinnitus, nasal congestion or post nasal drip Card: Denies: chest pain, palpitations, irregular heart rhythm, edema, swelling of feet/ankles, lightheadedness, syncope, pre-syncope, dyspnea on exertion, orthopnea, leg pain with exertion or acrocyanosis Resp: Denies: dyspnea, productive cough, non-productive cough, wheezing, stridor, pain on inspiration, change in phlegm color, hemoptysis or chest congestion GI: Denies: abdominal pain, nausea, vomiting, hematemesis, coffee ground emesis, dysphagia, heartburn, diarrhea, constipation, bloating, GI cramping, change in bowel habits, pain on defecation, hematochezia or melena : Denies: flank pain, dysuria, urinary frequency, urinary urgency, urinary hesitancy, nocturia or hematuria Musc: Denies: neck pain, back pain, extremity pain, joint pain, joint swelling, joint redness, joint stiffness or limited range of motion Neuro: Denies: headache(s), numbness in extremities, weakness in extremities, sensory changes, lack of coordination, difficulty walking, frequent falls, dizziness, vertigo, confusion, Slurred speech present, difficulty communicating thoughts or seizure-like activity Psych: Denies: anxiety, depression, mood swings, panic attacks, hopelessness or irritability Endo: Denies: polyuria, polydipsia, tired all the time, cold intolerance, excessive sweating, flushing or heat intolerance Blas/Lymph: Denies: easy bruising or easy bleeding All/Imm: Denies: tongue swelling, facial swelling or acute wheezing Medications/Allergies Home Medications Medication Instructions Recorded Confirmed Last Taken Type allopurinol 100 mg tablet 100 mg PO DAILY 08/04/20 09/05/23 Unknown History montelukast 10 mg tablet 10 mg PO DAILY 08/04/20 09/05/23 Unknown History (Singulair) acetaminophen 650 mg 650 mg PO Q12H PRN Pain 01/05/21 09/05/23 Unknown History tablet,extended release (Tylenol Arthritis Pain) turmeric 400 mg capsule 40 mg PO DAILY 01/05/21 09/05/23 Unknown History folic acid 1 mg tablet 2 mg (2 x 1 mg) PO DAILY #180 tabs 08/18/21 09/05/23 Unknown Rx amlodipine 10 mg tablet (Norvasc) 10 mg PO DAILY 08/22/21 09/05/23 Unknown History mecobalamin-levomefolate 1 tab PO DAILY 03/15/22 09/05/23 Unknown History calcium-pyridoxal phos 3 mg-35 mg-2 mg tablet ([id number]) tramadol 50 mg tablet 50 mg PO Q8H PRN Pain 03/15/22 09/05/23 Unknown History omeprazole 40 mg capsule,delayed 40 mg PO DAILY #30 caps 07/20/22 09/05/23 Unknown Rx release triamcinolone acetonide 0.1 % 1 applic topical BID #453.6 grams 10/10/22 09/05/23 Unknown Rx topical ointment tizanidine 4 mg tablet 4 mg PO BID PRN muscle spasticity 10/12/22 09/05/23 Unknown Rx #20 tabs amoxicillin 875 mg-potassium See Rx Instructions .Route 01/09/23 09/05/23 Unknown Rx clavulanate 125 mg tablet .COMPLEX #20 tabs furosemide 20 mg tablet 20 mg PO BID 09/05/23 09/05/23 Unknown History hydrocortisone 2.5 % topical 1 applic topical PRN 09/05/23 09/05/23 Unknown History ointment mupirocin 2 % topical ointment 1 applic topical TID 09/05/23 09/05/23 Unknown History potassium chloride 10 mEq 10 meq PO BID 09/05/23 09/05/23 Unknown History tablet,extended release Allergies Allergy/AdvReac Type Severity Reaction Status Date / Time Sulfa (Sulfonamide Allergy Unknown Unknown Verified 03/29/23 11:27 Antibiotics) PFSH Acute 2 PFSH: Medical History (Updated 09/05/23 @ 17:21 by Mir Otero MD) Compression fracture Incomplete bladder emptying Back pain 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 Recurrent UTI Urge incontinence STATUS POST VESICOVAGINAL FISTULA REPAIR Hypertension Surgical History Hx of hysterectomy Hx of cholecystectomy Hx of appendectomy Hx of oophorectomy S/P tonsillectomy H/O lumbosacral spine surgery H/O total knee replacement H/O bladder repair surgery Sling Family History Family/Other Cancer lung cancer Mother , at 100 Congestive heart failure (CHF) Father , at age 64 Stroke Social History Smoking and tobacco/nicotine status: never used tobacco/nicotine Second hand smoke exposure: No Alcohol intake: current Alcohol intake frequency: holidays/special occasions only Alcohol type: hard liquor Substance/Drug Use: never Marital status: Current occupational status: retired Vitals/I&O/Wt Last Vital Signs Temp 97.6 F 09/05/23 16:29 Pulse 72 09/05/23 16:29 Resp 16 09/05/23 15:15 BP 110/57 09/05/23 15:15 Pulse Ox 98 09/05/23 16:29 O2 Del Method Room Air 09/05/23 16:29 09/05/23 09/05/23 09/05/23 06:59 14:59 22:59 Intake Total 1000 / 1000 Balance 1000 / 1000 Weight last 48 hrs Weight 83.461 kg Physical Exam 2 Narrative: General: No acute distress, AO x3, stressed, hard of hearing HEENT: PERRLA, pupils bilaterally equal and reactive Chest: Normal vesicular breath sounds, no added sounds, equal good air entry bilaterally CVS: S1-S2 regular, no murmurs, no tachycardia, no gallops, no rubs Abdomen: Soft, nontender, no organomegaly, bowel sounds present, mild fluid thrill present, distended Neuro: No focal deficits, no facial deformity, AO x3, Extremity: Right leg straight leg test positive. Bilateral lower limb 2+ edema. Data 09/05/23 10:16 09/05/23 10:16 A&P Assessment and plan (1) Frequent falls: Mechanical. Most likely in setting of generalized weakness from hypokalemia. Patient also has significant stress lately. Multiple images done in the ER including CT head, cervical CT, CT face, hip x- ray, chest x-ray appreciated. Physical therapy. Tramadol 50 mg every 6 hourly for pain. Check urine drug screen, alcohol levels (2) Generalized weakness: Most likely in setting of hypokalemia. Respiratory viral panel negative. Getting complicated by back pain. IV hydration with normal saline at 75 cc/h. Replete potassium. Physical therapy. Check iron panel, vitamin B12 level, TSH. (3) Back pain: History of back surgery in the past. Aggravated since recent fall. Check CT lumbar with and without contrast. (4) Rhabdomyolysis: CPK elevated to 335. Serial daily monitoring. IV fluid as above. (5) Acute hypokalemia: Already repleted with 40 mg in the ER. Will give 20 mEq twice daily along with 40 mg extra dose right now. Repeat potassium in AM. (6) Transaminitis: Has been progressively getting worse over last 8 to 9 months. Unknown cause. Medical reconciliation done. Liver ultrasound negative for biliary etiology. Check CT abdomen pelvis. Check ESR, CRP, GGT, INR Hepatitis panel negative. (7) Elevated bilirubin: (8) Depression: Getting aggravated since her moved to a snf. Xanax 0.5 twice daily as needed. Start on Lexapro from AM. Plan Elevated troponin: Most likely in setting of fall. Delta 7 in 2 hours. NSTEMI unlikely. Will cycle troponins. Hold off on full dose Lovenox for now. Baby aspirin. Check A1c, lipid panel. If troponins are positive will plan for further ACS workup and echocardiogram. Hypertension: Goal blood pressure less than 140/90 mmHg. Takes amlodipine 10 mg daily at home. For now hold off on antihypertensives. Check orthostatics. Full code Son will be the DPOA. Regular diet Protonix for PUD prophylaxis Heparin 5000 every 12 hourly for DVT prophylaxis Discharge plan: Patient lives by herself and has been having frequent falls recently. Patient's son has been trying to get her to assisted living and [place] after her has been transitioned to hospice at snf and [place]. Will consult case management to see if he can get into assisted living sooner. Attestations 2 Medical Necessity Statement*: Admission for more than 2 midnights for management of generalized weakness leading to fall, rhabdomyolysis, transaminitis with elevated bilirubin, acute hypokalemia while safe discharge planning is sought Diagnoses Frequent falls R29.6 Generalized weakness R53.1 Back pain M54.9 Rhabdomyolysis M62.82 Acute hypokalemia E87.6 Transaminitis R74.01 Elevated bilirubin R17 Depression F32.A
[2023-09-05 16:52] LABS: Troponin 5 6HR 17.23 ng/L (0-10); Troponin 5 6HR Delta 4.23 ng/L (0-12)
[2023-09-05] MEDS: sodium chloride 0.9% 1,000 ML 100 ML IV (17:02)
--- NOTE | 2023-09-05 17:11 | CTR_ITS ---
PROCEDURE INFORMATION: Exam: CT Abdomen And Pelvis With Contrast Exam date and time: 09/05/2023 6:57 PM Age: 83 years old Clinical indication: Other: Elevated liver enz; Abdominal pain; Other: Low back pain chronic; Prior surgery; Surgery date: 6+ months; Surgery type: [place], l-spine; Additional info: Liver dysfunction, back pain, please comment on l-spine TECHNIQUE: Imaging protocol: Computed tomography of the abdomen and pelvis with contrast. Radiation optimization: All CT scans at this facility use at least one of these dose optimization techniques: automated exposure control; mA and/or kV adjustment per patient size (includes targeted exams where dose is matched to clinical indication); or iterative reconstruction. Contrast material: OMNI 350; Contrast volume: 100 ml; Contrast route: INTRAVENOUS (IV); COMPARISON: CR XR pelvis 1-2V* [id number] 09/05/2023 12:30 PM RADIATION DOSE METRICS: Total DLP (mGy-cm): 844 FINDINGS: Heart: Severe mitral annular calcifications. Coronary arteries: Coronary arterial atherosclerotic calcifications are present. Liver: Cirrhotic liver with hypertrophy of the lateral segment of the left lobe and caudate lobe and a nodular contour.Multiple punctate calcifications in the spleen consistent with prior granulomatous infection. Gallbladder and bile ducts: Normal. No calcified stones. No ductal dilation. Pancreas: Normal. No ductal dilation. Spleen: See Liver finding. Adrenal glands: Normal. No mass. Kidneys and ureters: Normal. No hydronephrosis. Stomach and bowel: Unremarkable. No obstruction. No mucosal thickening. Appendix: The appendix is not visualized but there are no secondary signs of acute appendicitis. Intraperitoneal space: Unremarkable. No free air. No significant fluid collection. Vasculature: Unremarkable. No abdominal aortic aneurysm. Lymph nodes: Unremarkable. No enlarged lymph nodes. Urinary bladder: Unremarkable as visualized. Reproductive: Unremarkable as visualized. Bones/joints: Posterior fusion L3, L4 and L5 without evidence of hardware failure or loosening. Compression fracture of the T11 vertebral body, age indeterminate. Levoscoliosis of the lumbar spine. Prior laminectomies at L3, L4 and L5. Soft tissues: Unremarkable. CT/CT abdomen pelvis w con* [id number] IMPRESSION: 1. Cirrhotic liver. Abdominal ascites. 2. Compression fracture of the T11 vertebral body, age indeterminate. 3. Posterior fusion L3, L4 and L5 without evidence of hardware failure or loosening.
[2023-09-05] MEDS: TRAMadol 50 mg Tablet PO (17:24)
[2023-09-05] MEDS: potassium chloride ER 20 mEq Tablet PO (17:25)
[2023-09-05] MEDS: potassium chloride ER 20 mEq Tablet 40 MEQ PO (17:26)
[2023-09-05 17:36] LABS: Iron 86 ug/dL (37-145); Percent Saturation 56.9 % (20-50); Thyroid Stimulating Hormone 3.45 uIU/mL (0.27-4.20); Total Iron Binding Capacity 151 mcg/dl; Unsaturated Iron Binding 65 ug/dL (112-347); Vitamin B12 1260 pg/mL (232-1245)
[2023-09-05 18:37] LABS: C Reactive Protein 24.6 mg/L (0.0-4.9); Gamma Glutamyl Transferase 600 U/L (5-36)
[2023-09-05 18:38] LABS: Alcohol Level < 10 mg/dL (0-10)
[2023-09-05] MEDS: iohexol 350 mg/mL 500 mL Btl (per mL) IV (19:08)
[2023-09-05 19:13] LABS: INR 1.07 (0.8-1.2)
[2023-09-05 19:38] LABS: Erythrocyte Sedimentation Rate 76 mm/hr (0-15)
[2023-09-06] VITALS (10 sets, daily range): BP systolic 120–153; BP diastolic 70–89; PULSE 72–94; RESP 11–20; TEMP 36.4–36.6; O2SAT 95–96
[2023-09-06] MEDS: TRAMadol 50 mg Tablet PO ×2 (02:30→17:18)
[2023-09-06] MEDS: sodium chloride 0.9% 1,000 ML 100 ML IV (02:31)
[2023-09-06] MEDS: morphine 4 mg/mL SDV 1 mL 2 MG IVP (03:33)
[2023-09-06 03:40] LABS: Basophils # 0.1 10^3/uL (0.0-0.1); Basophils % 0.9 %; Eosinophils # 0.3 10^3/uL (0.0-0.8); Eosinophils % 3.6 %; Hematocrit 35.3 % (36-47); Lymphocytes # 2.5 10^3/uL (0.8-4.8); Lymphocytes % 32.2 %; Mean Corpuscular HGB Conc 33.4 g/dL (30-55); Mean Corpuscular Hemoglobin 31.8 pg (27-33); Mean Corpuscular Volume 95.1 fl (85-98); Mean Platelet Volume 11.4 fL (7.4-10.4); Monocytes # 0.9 10^3/uL (0.2-0.9); Neutrophils # 4.04 10^3/uL (1.8-7.7); Neutrophils % 52.2 %; Nucleated Red Blood Cells % 0 %; Platelet Count 205 10^3/cmm (157-399); Red Blood Count 3.71 10^6/uL (3.85-5.65); White Blood Count 7.74 10^3/uL (3.29-11.43)
[2023-09-06 03:56] LABS: Estmated Average Glucose 85; Hemoglobin A1C 4.6 % (4.0-6.0)
[2023-09-06 04:01] LABS: Bilirubin Urine Neg (Negative); Blood Urine Neg (Negative); Glucose Urine UA Norm (Normal); Ketones Urine Negative (Negative); Leukocyte Esterase Urine Negative (Negative); Nitrate Urine Positive (Negative); Protein Urine Neg (Negative); Urine Appearance Cloudy (CLEAR); Urine Color Yellow (Yellow); Urobilinogen Urine Neg (Negative); pH Urine 8 (5-7)
[2023-09-06 04:01] LABS: Alanine Aminotransferase 47 U/L (0-33); Albumin Level 2.2 g/dL (3.5-5.2); Alkaline Phosphatase 288 U/L (35-105); Anion Gap 10.5 (5-19); Aspartate Amino Transferase 143 U/L (0-32); Blood Urea Nitrogen 7 mg/dL (8-23); Calcium 8.2 mg/dL (8.5-10.5); Carbon Dioxide 28 mmol/L (22-29); Chloride 101 mmol/L (98-107); Globulin 3.9 g/dL (1.3-4.6); Glucose 89 mg/dL (65-115); Magnesium 1.4 mg/dL (1.7-2.3); Osmolality Calculated 279 mOsm/kg (285-295); Phosphorus 2.2 mg/dL (2.5-4.5); Potassium 3.5 mmol/L (3.5-5.1); Sodium 136 mmol/L (136-145); Total Bilirubin 3.1 mg/dL (0.15-1.2); Total Protein 6.1 g/dL (6.6-8.7)
[2023-09-06 04:03] LABS: Add Urine Microscopic? YES; Sulfosalicylic Acid Urine Negative (Negative)
[2023-09-06 04:04] LABS: Bacteria Urine 4+ /hpf; Mucus Urine 2+ /hpf; RBC Urine 0-4 /hpf (0-2); Squamous Epithelial Cell Urine 0-4 /hpf (0-5)
[2023-09-06 04:05] LABS: Add Urine Culture? Yes
[2023-09-06 04:06] LABS: Amphetamines Screen Urine Negative (Negative); Barbiturates Screen Urine Negative (Negative); Benzodiazepines Screen Urine Negative (Negative); Cocaine Screen Urine Negative (Negative); Opiate Screen Urine Negative (Negative); PCP Screen Urine Negative (Negative); THC Screen Urine Negative (Negative)
[2023-09-06 04:06] LABS: Chol HDL Ratio 10.11 mg/dL (0.0-4.40); Cholesterol 192 mg/dL (0-200); HDL Cholesterol 19 mg/dL (60-100); LDL Cholesterol Calculated 154 mg/dL (50-129); LDL HDL Ratio 8.11 RATIO (0.00-3.22); Triglycerides 94 mg/dL (0-150)
[2023-09-06 04:08] LABS: Procalcitonin 0.46 ng/mL (0-0.5)
[2023-09-06 04:22] LABS: Folate Level 6.1 ng/mL (4.8-37.3)
[2023-09-06] MEDS: allopurinol 100 mg Tablet PO (08:11)
[2023-09-06] MEDS: folic acid 1 mg Tablet 2 MG PO (08:11)
[2023-09-06] MEDS: potassium chloride ER 20 mEq Tablet PO ×2 (08:11→17:18)
[2023-09-06] MEDS: escitalopram 10 mg Tablet PO (08:11)
[2023-09-06] MEDS: pantoprazole DR 40 mg Tablet PO (08:11)
--- NOTE | 2023-09-06 11:21 | PC.NURSE ---
pt reported that she is feeling nauseous while PT got her up to ambulate. she pushed the call light and said she has vomited her jello. has minimal nosebleed. offered pt if she wants PRN zofran and she refused for now.
--- NOTE | 2023-09-06 11:59 | US_ITS ---
WS: [id number] Abdominal ultrasound, limited. History: Evaluate for ascites. Comparison: None. All 4 quadrants are imaged by ultrasound to evaluate for ascites. There is only a very tiny amount of fluid in the RIGHT lower quadrant. Insufficient for paracentesis. IMPRESSION: Minimal peritoneal ascites.
[2023-09-06] MEDS: spironolactone 25 mg Tablet 50 MG PO (13:06)
[2023-09-06] MEDS: magnesium sulfate premix 1 GM/100 ML PIGGYBACK IV (13:07)
--- NOTE | 2023-09-06 15:12 | P.DS_ITS ---
Discharge Providers Date of Admission: 09/05/23 13:41 Date of Discharge: September 06, 2023 Attending Provider at Admission: Mir Otero MD Attending Provider at Discharge: Mir Otero MD Primary Care Provider: Leonila James NP Diagnoses at Discharge Discharge Diagnosis (1) Frequent falls: Status: Acute (2) Generalized weakness: Status: Acute (3) Back pain: Status: Acute (4) Rhabdomyolysis: Status: Acute (5) Acute hypokalemia: Status: Acute (6) Transaminitis: Status: Acute (7) Elevated bilirubin: Status: Acute (8) Depression: Status: Acute (9) Cirrhosis of liver: Status: Acute Reason for Visit Reason for Visit: fall Hospital Course Hospital Course Lianna Mckeon is a 83 year old female with past medical history of lumbar fracture post surgery, fibromyalgia, hypokalemia, hypertension who presented to the ER today after a fall. As per the patient she had initial fall on when she was trying to take trash out and she had a mechanical fall after which her back pain got aggravated and she had difficulty and pain on moving her right leg since then she has been sitting and sleeping in the recliner. Patient had a repeat fall last night when her legs got tangled. Falls are not associated with chest pain, nausea vomiting, or, dizziness or difficulty in breathing. After fall she was not able to move and remained on the floor for around 6 hours till her son came to visit with her earlier in the morning. After that she was brought to the ER. In the ER she was found to have rhabdomyolysis with CPK up to 300 and potassium of 2.8. As per patient she has been worked up as an outpatient by primary care provider for abnormal liver numbers with possibility of liver ultrasound later this week. She states her lower limbs have been getting swollen, she has been gaining weight for last 1 month along with increased fullness in her belly for which she has been taking double the dose of her Lasix and double the dose of her potassium. Patient states she has been fair amount of stress lately because her was recently moved to a long term under hospice for Alzheimer's since then she has been living by herself and her family has been trying to get her to assisted living in couple where they are planning to get her before the end of this month. Patient also states she consumes a glass of wine a day for many years. She used to consume alcohol many years ago but does not consume anymore. Last glass of wine was more than 2 weeks ago. Patient was admitted to the hospital further evaluation and management of dehydration, rhabdomyolysis, transaminitis and hypokalemia. Potassium was repleted aggressively and has been stable around 3.5. Patient worked well with physical therapy. CT abdomen pelvis and lumbar spine was done which showed stable lumbar spine with hardware and old T10 compression fracture. Patient worked appropriately with physical therapy. CT abdomen pelvis was also concerning for new liver cirrhosis which is most likely cause for her transaminitis and hyperbilirubinemia. There was some concerns for ascites on CT abdomen pelvis which was ruled out by abdominal ultrasound which only showed minimal ascites fluid. Safe discharge plan were discussed in detail with the patient. Patient is to go to assisted living at [facility] on September 13 which has been moved to coming September 11. She has been discharged in hemodynamically stable condition on continuing home dose of Lasix and potassium along with spironolactone 50 mg daily. Medical reconciliation has been done for hepatotoxic medications. She is advised to follow-up with a GI specialist/sales manager prearranged funerals. Discharge planning was discussed in detail with patient's son over the phone. Physical Exam Narrative: General: No acute distress, AO x3, stressed, hard of hearing HEENT: PERRLA, pupils bilaterally equal and reactive Chest: Normal vesicular breath sounds, no added sounds, equal good air entry bilaterally CVS: S1-S2 regular, no murmurs, no tachycardia, no gallops, no rubs Abdomen: Soft, nontender, no organomegaly, bowel sounds present, mild fluid thrill present, distended Neuro: No focal deficits, no facial deformity, AO x3, Extremity: Right leg straight leg test positive. Bilateral lower limb 2+ edema. Discharge Data Studies Completed and Pending Completed Studies During Hospitalization Category Date Time Status CT abdomen pelvis w con* [id number] Routine Cat Scan 09/05/23 17:[address] cervical spin wo con* [id number] Stat Cat Scan 09/05/23 10:[address] facial bones wo con* [id number] Stat Cat Scan 09/05/23 10:[address] head wo con* [id number] Stat Cat Scan 09/05/23 10:01 Completed XR chest 1V portable [id number] Stat Exams 09/05/23 12:38 Completed XR pelvis 1-2V* [id number] Stat Exams 09/05/23 12:03 Completed US abdomen lmt fluid [id number] Routine Ultrasound 09/06/23 11:59 Completed US gall bladder [id number] Stat Ultrasound 09/05/23 11:10 Completed US venous duplex lower extremity bilat [CV venous Ultrasound 09/05/23 10:44 [place] [id number]] Stat Pending at discharge Category Date Time Status Urine Culture Stat Lab 09/06/23 03:40 Received Radiology Impressions Abdomen/Pelvis CT 09/05/23 17:11 IMPRESSION: 1. Cirrhotic liver. Abdominal ascites. 2. Compression fracture of the T11 vertebral body, age indeterminate. 3. Posterior fusion L3, L4 and L5 without evidence of hardware failure or loosening. Laboratory Results WBC 7.74 10^3/uL (3.29-11.43) 09/06/23 03:17 RBC 3.71 10^6/uL (3.85-5.65) L 09/06/23 03:17 Hgb 11.80 g/dL (11.27-16.99) 09/06/23 03:17 Hct 35.3 % (36-47) L 09/06/23 03:17 MCV 95.1 fl (85-98) D 09/06/23 03:17 MCH 31.8 pg (27-33) 09/06/23 03:17 MCHC 33.4 g/dL (30-55) D 09/06/23 03:17 RDW 16.0 % (12.1-15.1) H 09/06/23 03:17 Plt Count 205 10^3/cmm (157-399) 09/06/23 03:17 MPV 11.4 fL (7.4-10.4) H 09/06/23 03:17 Neut % (Auto) 52.2 % 09/06/23 03:17 Lymph % (Auto) 32.2 % 09/06/23 03:17 [place] % (Auto) 11.0 % 09/06/23 03:17 Eos % (Auto) 3.6 % 09/06/23 03:17 Baso % (Auto) 0.9 % 09/06/23 03:17 Neut # (Auto) 4.04 10^3/uL (1.8-7.7) 09/06/23 03:17 Lymph # (Auto) 2.5 10^3/uL (0.8-4.8) 09/06/23 03:17 [place] # (Auto) 0.9 10^3/uL (0.2-0.9) 09/06/23 03:17 Eos # (Auto) 0.3 10^3/uL (0.0-0.8) 09/06/23 03:17 Baso # (Auto) 0.1 10^3/uL (0.0-0.1) 09/06/23 03:17 Nucleated RBC % (auto) 0 % 09/06/23 03:17 Nucleated RBCs # 0.0 /100WBC 09/06/23 03:17 ESR 76 mm/hr (0-15) H 09/05/23 10:16 PT 14.20 SECONDS (12.1-14.9) 09/05/23 18:45 INR 1.07 (0.8-1.2) 09/05/23 18:45 Sodium 136 mmol/L (136-145) 09/06/23 03:17 Potassium 3.5 mmol/L (3.5-5.1) 09/06/23 03:17 Chloride 101 mmol/L (98-107) 09/06/23 03:17 Carbon Dioxide 28 mmol/L (22-29) 09/06/23 03:17 Anion Gap 10.5 (5-19) 09/06/23 03:17 BUN 7 mg/dL (8-23) L 09/06/23 03:17 Creatinine 0.7 mg/dL (0.5-0.9) 09/06/23 03:17 GFR Calculation Not Reportable 09/06/23 03:17 Glucose 89 mg/dL (65-115) 09/06/23 03:17 Estimat Average Glucose 85 09/06/23 03:17 Hemoglobin A1c 4.6 % (4.0-6.0) 09/06/23 03:17 Calculated Osmolality 279 mOsm/kg (285-295) L 09/06/23 03:17 Lactic Acid 1.2 mmol/L (0.5-2.2) 09/05/23 10:16 Calcium 8.2 mg/dL (8.5-10.5) L 09/06/23 03:17 Phosphorus 2.2 mg/dL (2.5-4.5) L 09/06/23 03:17 Magnesium 1.4 mg/dL (1.7-2.3) L 09/06/23 03:17 Iron 86 ug/dL (37-145) 09/05/23 12:07 TIBC 151 mcg/dl 09/05/23 12:07 % Saturation 56.9 % (20-50) H 09/05/23 12:07 Unsat Iron Binding 65 ug/dL (112-347) L 09/05/23 12:07 Total Bilirubin 3.1 mg/dL (0.15-1.2) H 09/06/23 03:17 GGT 600 U/L (5-36) H 09/05/23 12:07 AST 143 U/L (0-32) H 09/06/23 03:17 ALT 47 U/L (0-33) H 09/06/23 03:17 Alkaline Phosphatase 288 U/L (35-105) H 09/06/23 03:17 Creatine Kinase 335 U/L (26-192) H* 09/05/23 10:16 Troponin T Baseline 13 ng/L (0-10) H 09/05/23 10:16 Troponin T 120 Minute 20.16 ng/L (0-10) H 09/05/23 12:07 Delta Troponin T 7.16 ABS# (0-10) 09/05/23 12:07 Troponin T Hi Sens 6Hr 17.23 ng/L (0-10) H 09/05/23 16:28 Troponin T Hi Sens 6Hr Delta 4.23 ng/L (0-12) 09/05/23 16:28 C-Reactive Protein 24.6 mg/L (0.0-4.9) H 09/05/23 12:07 NT-Pro-B Natriuret Pep 338 pg/mL (0-450) 09/05/23 10:16 Total Protein 6.1 g/dL (6.6-8.7) L 09/06/23 03:17 Albumin 2.2 g/dL (3.5-5.2) L 09/06/23 03:17 Globulin 3.9 g/dL (1.3-4.6) 09/06/23 03:17 Triglycerides 94 mg/dL (0-150) 02/22/24 03:17 Cholesterol 192 mg/dL (0-200) 09/06/23 03:17 LDL Cholesterol, Calc 154 mg/dL (50-129) H 09/06/23 03:17 HDL Cholesterol 19 mg/dL (60-100) L 09/06/23 03:17 LDL/HDL Ratio 8.11 RATIO (0.00-3.22) H 09/06/23 03:17 Cholesterol/HDL Ratio 10.11 mg/dL (0.0-4.40) H 09/06/23 03:17 Vitamin B12 1260 pg/mL (232-1245) H 09/05/23 12:07 Folate 6.1 ng/mL (4.8-37.3) 09/06/23 03:17 Procalcitonin 0.46 ng/mL (0-0.5) 09/06/23 03:17 TSH 3.45 uIU/mL (0.27-4.20) 09/05/23 12:07 Urine Color Yellow (Yellow) 09/06/23 03:40 Urine Appearance Cloudy (CLEAR) A 09/06/23 03:40 Urine pH 8 (5-7) H 09/06/23 03:40 Ur Specific [place] 1.010 (1.005-1.030) 09/06/23 03:40 Urine Protein Neg (Negative) 09/06/23 03:40 Urine Glucose (UA) Norm (Normal) 09/06/23 03:40 Urine Ketones Negative (Negative) 09/06/23 03:40 Urine Blood Neg (Negative) 09/06/23 03:40 Urine Nitrate Positive (Negative) H 09/06/23 03:40 Urine Bilirubin Neg (Negative) 09/06/23 03:40 Prot Sulfosalicylic Acd Negative (Negative) 09/06/23 03:40 Urine Urobilinogen Neg mg/dL (Negative) 09/06/23 03:40 Ur Leukocyte Esterase Negative (Negative) 09/06/23 03:40 Urine RBC 0-4 /hpf (0-2) H 09/06/23 03:40 Urine WBC 5-10 /hpf (0-5) H 09/06/23 03:40 Ur Squamous Epith Cells 0-4 /hpf (0-5) H 09/06/23 03:40 Amorphous Sediment Not Reportable 02/22/24 03:40 Urine Bacteria 4+ /hpf (NONE) H 09/06/23 03:40 Urine Mucus 2+ /hpf 09/06/23 03:40 Urine Opiates Screen Negative ng/mL (Negative) 09/06/23 03:40 Ur Barbiturates Screen Negative ng/mL (Negative) 09/06/23 03:40 Ur Phencyclidine Scrn Negative ng/mL (Negative) 09/06/23 03:40 Ur Amphetamines Screen Negative ng/mL (Negative) 09/06/23 03:40 U Benzodiazepines Scrn Negative ng/mL (Negative) 09/06/23 03:40 Urine Cocaine Screen Negative ng/mL (Negative) 09/06/23 03:40 U Marijuana (THC) Screen Negative ng/mL (Negative) 09/06/23 03:40 Ethyl Alcohol < 10 mg/dL (0-10) 09/05/23 12:07 Adenovirus (PCR) Not detected (NOT DETECT) 09/05/23 12:07 C. pneumoniae DNA (PCR) Not detected (NOT DETECT) 09/05/23 12:07 Coronavirus 229E (PCR) Not detected (NOT DETECT) 09/05/23 12:07 Hepatitis A IgM Ab Non-reactive (Nonreactive) 09/05/23 10:16 Hep Bs Antigen Non-reactive (Nonreactive) 09/05/23 10:16 Hep B Core IgM Ab Non-reactive (Nonreactive) 09/05/23 10:16 Hepatitis C Antibody Non-reactive (Nonreactive) 09/05/23 10:16 Human Metapneumovir PCR Not detected (NOT DETECT) 09/05/23 12:07 Influenza A (H1) PCR Not detected (NOT DETECT) 09/05/23 12:07 Influ A (H1/09) PCR Not detected (NOT DETECT) 09/05/23 12:07 Influenza A (H3) PCR Not detected (NOT DETECT) 09/05/23 12:07 Influenza Type A (PCR) Not detected (NOT DETECT) 09/05/23 12:07 Influenza Type B (PCR) Not detected (NOT DETECT) 09/05/23 12:07 M. pneumoniae (PCR) Not detected (NOT DETECT) 09/05/23 12:07 Parainfluenza 1 (PCR) Not detected (NOT DETECT) 09/05/23 12:07 Parainfluenza 2 (PCR) Not detected (NOT DETECT) 09/05/23 12:07 Parainfluenza 3 (PCR) Not detected (NOT DETECT) 09/05/23 12:07 Parainfluenza 4 (PCR) Not detected (NOT DETECT) 09/05/23 12:07 RSV Type A (PCR) Not detected (NOT DETECT) 09/05/23 12:07 RSV Type B (PCR) Not detected (NOT DETECT) 09/05/23 12:07 Entero/Rhino (PCR) Not detected (NOT DETECT) 09/05/23 12:07 SARS-CoV-2 (PCR) Not detected (NOT DETECT) 09/05/23 12:07 Vitals Last Vital Signs Temp 97.9 F 09/06/23 08:13 Pulse 72 09/06/23 12:13 Resp 20 H 09/06/23 12:13 BP 136/89 09/06/23 12:13 Pulse Ox 96 09/06/23 12:13 O2 Del Method Room Air 09/06/23 08:13 Discharge Plan Discharge Patient Disposition: Home Condition: Stable Prescriptions: New spironolactone 25 mg Tablet 50 mg PO DAILY 30 Days Qty: 60 0RF escitalopram oxalate 10 mg Tablet 10 mg PO DAILY Qty: 30 0RF Continued montelukast [Singulair] 10 mg tablet 10 mg PO DAILY allopurinol 100 mg tablet 100 mg PO DAILY turmeric 400 mg capsule 40 mg PO DAILY amlodipine [Norvasc] 10 mg tablet 10 mg PO DAILY acetaminophen [Tylenol Arthritis Pain] 650 mg tablet extended release 650 mg PO Q12H PRN (Reason: Pain) triamcinolone acetonide 0.1 % ointment 1 applic topical BID Qty: 453.6 1RF Rx Instructions: Apply to affected area no more than two weeks per month. Not for face. T-Eomwti-T0-B12 3-35-2 mg tablet 1 tab PO DAILY tramadol 50 mg tablet 50 mg PO Q8H PRN (Reason: Pain) folic acid 1 mg tablet 2 mg PO DAILY Qty: 180 0RF omeprazole 40 mg capsule,delayed release(DR/EC) 40 mg PO DAILY Qty: 30 3RF tizanidine 4 mg tablet 4 mg PO BID PRN (Reason: muscle spasticity) Qty: 20 0RF potassium chloride 10 mEq tablet extended release 10 meq PO BID mupirocin 2 % ointment 1 applic TOPICAL TID furosemide 20 mg tablet 20 mg PO BID hydrocortisone 2.5 % ointment 1 applic TOPICAL PRN Discontinued amoxicillin-pot clavulanate 875-125 mg tablet See Rx Instructions .ROUTE .COMPLEX Qty: 20 0RF Dose Instruction: TAKE 1 TABLET BY MOUTH IN THE MORNING AND IN THE EVENING Rx Instructions: TAKE 1 TABLET BY MOUTH IN THE MORNING AND IN THE EVENING Discharge Orders: Discharge Order (Routine); Ordered 09/06/23 Ordered By: Mir Otero Referrals: Leonila James NP [Primary Care Provider] - 09/19/23 10:30 am Discharge Diet: Regular Discharge Activity: Resume usual activity and Increase activity as tolerated Patient Instructions: Opioid Safety Activity Restrictions/Additional Instructions: Continue taking the Lasix and potassium tablets as before. Spironolactone has been added to your medication list. Restrict fluid intake to less than 1500 cc. Restrict salt intake to less than 2 g daily. Please restrict alcohol use. Please check your blood pressures daily and maintain a blood pressure diary and follow-up with a primary care provider on set appointment with blood pressure lynsey pinedo. You should see a sales manager prearranged funerals/benzene operator as soon as possible for liver cirrhosis. Discharge Attestations Time Spent in Discharge Care*: greater than 30 min Specific Discharge Activities: educating patient, educating and/or supporting family/caregiver, discussing with pcp/other providers, discussing with case management manager/social workers/dc planners, documenting/other paperwork and evaluating patient/reviewing data Status at Discharge: Cognitive status at discharge: mildly impaired cognition , Behavioral status at discharge: cooperative , Functional status at discharge: uses cane/walker , Overall status at discharge: patient is back to baseline Quality Metrics Clinical Quality Measures [ No reported AMI, CVA or VTE this stay] Coding Level of Care Code 69460 Total time (in minutes) for Discharge: 60 Diagnoses Frequent falls R29.6 Generalized weakness R53.1 Back pain M54.9 Rhabdomyolysis M62.82 Acute hypokalemia E87.6 Transaminitis R74.01 Elevated bilirubin R17 Depression F32.A Cirrhosis of liver K74.60
[2023-09-06] MEDS: ondansetron 2 mg/ML SDV 2 mL 4 MG IM (17:41)
--- NOTE | 2023-09-06 17:59 | PC.NURSE ---
pt started to get nauseaus after getting up to and from bathroom. she had taken her potassium pill and tramadol as scheduled. she vomit and had emesis, no pills she had thrown up. notified doctor and he said to give IM 4 mg zofran and call new prescription to her her pharmacy a zofran 4 mg tab Q8H PRN for nausea and vomiting #20tabs dispense, [facility] called. informed patient and son Anders at bedside that she has an additional new Rx of Zofran tablet for her nausea/vomiting as needed.
== END 2023-09-06 18:11 | disposition home or self-care (01) ==
LOC: ER 10:36 → CSU 14:02
PROVIDERS: Admitting Provider Student in an Organized Health Care Education/Training Program; Emergency Provider Family Medicine; PCP Nurse Practitioner Family; Visit Provider Student in an Organized Health Care Education/Training Program
DX: R53.1 Weakness (principal); R29.6 Repeated falls; Z98.890 Other specified postprocedural states; M54.9 Dorsalgia, unspecified; M62.82 Rhabdomyolysis; E87.6 Hypokalemia; R74.01 Elevation of levels of liver transaminase levels; F32.A Depression, unspecified; K74.60 Unspecified cirrhosis of liver; M79.7 Fibromyalgia; I10 Essential (primary) hypertension; Z91.81 History of falling; E86.0 Dehydration
CPT/HCPCS: 36415; 70450; 70486; 71045; 72125; 72170; 74177; 76705; 80053; 80061; 80074; 80306; 80307; 81001; 82550; 82607; 82746; 82977; 83036; 83540; 83550; 83605; 83735; 83880; 84100; 84145; 84443; 84484; 85025; 85610; 85651; 86140; 87077; 87086; 87186; 87486; 87581; 87633; 93005; 93970; 94664; 96365; 96372; 97110; 97161; 97530; 99285; G0378; J2270; J2405; J3475; J3480; J7030; Q9967